=== PATIENT | male | born 1980 | race Caucasian/White ===

== ENCOUNTER 2019-05-31 10:24 | Emergency (ER) | payer OTHER, SELFPAY ==
[2019-05-31 12:02] VITALS: BP 140/88; PULSE 63; TEMP 98.4; BMI 23.7
== END 2019-05-31 14:10 | disposition home or self-care (01) ==
LOC: JER 10:24
DX: Z03.818 Encounter for observation for suspected exposure to other biological agents ruled out (principal); J06.9 Acute upper respiratory infection, unspecified
CPT/HCPCS: 71045-TC-FY; 87798; 87804; 87807; 99284-25; U0002